=== PATIENT | female | born 1975 | race African-American/Black ===

== ENCOUNTER 2018-08-29 01:19 | Emergency (ER) | payer MEDICARE ==
[~2018-08-29] VITALS: Ht 160 cm; Wt 77.1 kg
[~2018-08-29 01:19] MED LIST: ACETAMINOPHEN-1 EAC1 PO; AMOXICILLIN; AMOXICILLIN 50500 MG PO; AMOXICILLIN875 MG PO; BENTYL 20 MG TA20 M1 PO; BENTYL10 MG PO; BENZTROPINE ME0.5 MG PO; CARAFATE 1 GM TA1 G1 PO; CLONAZEPAM 0.50.5 M1; CLONAZEPAM 1 MG1 M1 PO; CLOZAPINE25 MG PO; COLACE100 MG PO; DEPAKOTE 250MG250 M1 PO; DEPAKOTE ER250 MG; FLUVOXAMINE MA100 M1; GAS RELIEF125 M1 PO; HALOPERIDOL 5 MG5 MG PO; HYDROCODON-ACE1 EAC7 PO; IBUPROFEN 600600 M1 PO; IBUPROFEN 800800 M1 PO; LIDOCAINE VISC100 M1 MM; MACROBID 100 M100 M1 PO; MEDROLDOSEPACK PO; NORCO 5-325 TA1 EACH PO; NORFLEX100 MG PO; ORABASE11.9 GM MM; PENICILLIN VK500 M1 PO; PENICILLIN VK500 MG PO; PRILOSEC 20 MG20 MG PO; PROAIR HFA8.5 GM INH; SENNA8.6 MG PO; SEROQUEL 25 MG25 M1; TYLENOL325 MG PO; ULTRAM50 MG PO; ZANTAC 7575 MG PO; ZEGERID OTC 201 EACH PO; ZOFRAN ODT4 MG PO; ZPAK PO
[2018-08-29 01:46] LABS: HEMOGLOBIN 12.6 gm/dL (12.0-15.0); NUCLEATED RBCS 0 /100WBC; RBC 4.53 mil/uL (4.20-5.00); WBC 18.3 thou/uL (4.0-11.0)
[2018-08-29 01:53] LABS: ABSOLUTE BASOPHILS 0.2 thou/uL (0.0-0.2); ABSOLUTE MONOCYTES 1.6 thou/uL (0.0-1.2); ABSOLUTE NEUTROPHILS 14.6 thou/uL (1.6-8.1); BASOPHILS 0.9 %; EOSINOPHILS 0.1 %; HEMATOCRIT 38.6 % (37.0-47.0); LYMPHOCYTES 11.1 %; MCH 27.7 pg (26.0-34.0); MCHC 32.5 g/dL (28.0-37.0); MCV 85.2 fL (80.0-100.0); MONOCYTES 8.5 %; PLATELET COUNT* 451 thou/uL (150-400); POLYS 79.4 %; RDW-CV 14.2 % (10.5-14.5)
[2018-08-29 01:55] LABS: INR 1.1; PROTIME 10.9 Seconds (9.20-11.50)
[2018-08-29 01:57] LABS: ANION GAP 17 mmol/L (7-16); BUN 24 mg/dL (7-18); CALCIUM 9.5 mg/dL (8.5-10.1); CHLORIDE 105 mmol/L (98-107); CO2 21 mmol/L (21-32); CREATININE 1.3 mg/dL (0.6-1.3); GLUCOSE 119 mg/dL (70-99); POTASSIUM 3.6 mmol/L (3.5-5.1); SODIUM 143 mmol/L (136-145)
[2018-08-29 02:01] LABS: ACETAMINOPHEN 3 ug/mL (10-30); SALICYLATE < 2.8 mg/dL (2.8-20.0)
[2018-08-29 02:02] LABS: ALCOHOL < 10 mg/dL (<10)
[2018-08-29 02:04] LABS: ALBUMIN 4.3 g/dL (3.4-5.0); ALKALINE PHOSPHATASE 76 U/L (46-116); NT-PRO BRAIN NAT PEPTIDE 77 pg/mL (<300); SGOT 26 U/L (15-37); SGPT 27 U/L (30-65); TOTAL BILIRUBIN 0.6 mg/dL (<0.1-1.0); TOTAL PROTEIN 8.3 g/dL (6.4-8.2); TROPONIN-I LEVEL <0.06 ng/mL (<0.06)
[2018-08-29 03:31] LABS: URINE BILIRUBIN NEGATIVE (Negative); URINE BLOOD TRACE (Negative); URINE CLARITY CLEAR; URINE COLOR YELLOW; URINE GLUCOSE-RANDOM NEGATIVE (Negative); URINE KETONES 2+ (Negative); URINE LEUKOCYTES-REFLEX NEGATIVE (Negative); URINE NITRITE-REFLEX NEGATIVE (Negative); URINE PROTEIN TRACE (Negative); URINE SPECIFIC GRAVITY >= 1.030 (1.005-1.030); URINE UROBILINOGEN 0.2 E.U./dl (0.2-1.0)
[2018-08-29 03:33] LABS: AMP/METHAMP Negative (Negative); BARBITURATES Negative (Negative); BENZODIAZEPINES Negative (Negative); COCAINE Negative (Negative); METHADONE Negative (Negative); OPIATES Negative (Negative); PCP Negative (Negative); THC Negative (Negative)
--- NOTE | 2018-08-29 14:58 | EKG ---
[place] [address] ELECTROCARDIOGRAM REPORT Name: CRISTIANO MILLS Room: [facility]#: [id number] Admission: 08/29/18 Attend Phys: Discharge: Date of : 73 Report #: [id number] THIS REPORT FOR: //name// [facility] ED Test Date: 2018-08-29 Test Time: 02:13:09 Pat Name: CRISTIANO MILLS Department: Room: Gender: F Field Recorder: NI : 1975 Requested By: Samantha Esteves Order Number: [id number] MD: Warren Tsang Measurements Intervals [place] Rate: 106 P: 48 [place]: 167 QRS: 12 QRSD: 69 T: 23 QT: 352 QTc: 468 Interpretive Statements Sinus tachycardia Compared to ECG 04/26/2015 19:01:07 T-wave abnormality no longer present Electronically Signed On 08-29-2018 14:58:35 TACTICAL/MOBILE WATCH OFFICER by Warren Tsang [email or web address] <ELECTRONICALLY SIGNED> By: Warren Tsang MD, [facility] 08/29/18 1458 0213 0213 Warren Tsang MD, FACC /EPI
[2018-08-30 13:39] VITALS: BP 126/76
== END 2018-08-30 13:41 ==
LOC: M.ERS 01:19
PROVIDERS: Emergency Medicine
DX: F15.10 Other stimulant abuse, uncomplicated (principal); F28 Other psychotic disorder not due to a substance or known physiological condition; R41.82 Altered mental status, unspecified; F32.9 Major depressive disorder, single episode, unspecified; F20.9 Schizophrenia, unspecified; I10 Essential (primary) hypertension; E11.9 Type 2 diabetes mellitus without complications

== ENCOUNTER 2018-12-12 07:13 | Emergency (ER) | payer MEDICARE ==
[~2018-12-12] VITALS: Ht 167.6 cm; Wt 77.1 kg
[2018-12-12 07:32] LABS: HEMATOCRIT 37.3 % (37.0-47.0); HEMOGLOBIN 12.3 gm/dL (12.0-15.0); MCH 27.5 pg (26.0-34.0); MCV 83.2 fL (80.0-100.0); MPV 7.3 fl. (7.2-11.1); RBC 4.48 mil/uL (4.20-5.00); RDW-CV 14.4 % (10.5-14.5); WBC 9.3 thou/uL (4.0-11.0)
[2018-12-12 07:45] LABS: CALCIUM 8.8 mg/dL (8.5-10.1); CREATININE 0.8 mg/dL (0.6-1.3); POTASSIUM 3.8 mmol/L (3.5-5.1)
[2018-12-12 07:49] LABS: ALBUMIN 3.5 g/dL (3.4-5.0); SALICYLATE < 2.8 mg/dL (2.8-20.0); TOTAL BILIRUBIN 0.3 mg/dL (<0.1-1.0)
[2018-12-12 07:53] LABS: ACETAMINOPHEN < 10 ug/mL (10-30); ALCOHOL < 2 mg/dL (<10)
[2018-12-12 08:26] LABS: URINE BILIRUBIN NEGATIVE (Negative); URINE BLOOD NEGATIVE (Negative); URINE CLARITY CLEAR; URINE COLOR YELLOW; URINE GLUCOSE-RANDOM NEGATIVE (Negative); URINE KETONES NEGATIVE (Negative); URINE LEUKOCYTES NEGATIVE (Negative); URINE NITRITE NEGATIVE (Negative); URINE PROTEIN NEGATIVE (Negative)
[2018-12-12 08:28] LABS: AMP/METHAMP Negative (Negative); BARBITURATES Negative (Negative); BENZODIAZEPINES Negative (Negative); COCAINE Negative (Negative); METHADONE Negative (Negative); OPIATES Negative (Negative); PCP Negative (Negative); THC Negative (Negative)
[2018-12-12] MEDS ORDERED: PROZAC20 MG PO (10:25)
[2018-12-12] MEDS ORDERED: PROPRANOLOL 4040 M1 PO (10:26)
[2018-12-12] MEDS ORDERED: RISPERIDONE ODT2 MG PO (10:31)
[2018-12-12 16:56] VITALS: BP 129/75
== END 2018-12-12 16:57 | disposition home or self-care (01) ==
LOC: M.ERS 07:13
PROVIDERS: Personal Emergency Response Attendant
DX: F23 Brief psychotic disorder (principal); F32.9 Major depressive disorder, single episode, unspecified; I10 Essential (primary) hypertension; E11.9 Type 2 diabetes mellitus without complications; Z79.899 Other long term (current) drug therapy

== ENCOUNTER → 2020-08-12 | Outpatient (CLI) | payer MEDICARE ==
[~2020-08-12] MED LIST changes: +PROPRANOLOL 4040 M1 PO; +PROZAC20 MG PO; +RISPERIDONE ODT2 MG PO
== END ==
LOC: M.RAD 10:57
PROVIDERS: ATTEND Internal Medicine
DX: Z12.31 Encounter for screening mammogram for malignant neoplasm of breast (principal)